=== PATIENT | male | born 1980 | race African-American/Black ===

== ENCOUNTER → 2016-06-28 | Outpatient (CLI) | payer OTHER ==
--- NOTE | 2016-06-28 10:31 | REP ---
Clinical: Pain and swelling. Technique: AP, lateral, bilateral oblique views of the right fifth digit. Findings: Osseous structures and joint spaces are relatively intact and normal for age. No acute fracture dislocation. No subcutaneous emphysema or radiodense foreign body. Impression: Normal age appropriate appearance of the right fifth digit. Signed by Roc David MD 06/28/2016 10:22 A
== END ==
LOC: M LRY 09:44
PROVIDERS: ATTEND Nurse Practitioner Family
DX: M25.441 Effusion, right hand (principal)

== ENCOUNTER → 2016-06-28 | Outpatient (REF) | payer OTHER ==
[2016-06-28 12:35] LABS: URIC ACID 4.5 MG/DL (3.5-7.2)
== END ==
LOC: M SFHCLERA 09:41
PROVIDERS: ATTEND Nurse Practitioner Family
DX: M25.441 Effusion, right hand (principal)

== ENCOUNTER → 2019-01-02 | Outpatient (REF) | payer OTHER, MEDICAID ==
[2019-01-02 13:07] LABS: BASO % 0.8 % (0.0-1.0); EOS # 0.1 10^3/uL (0.0-0.5); EOS % 1.2 % (0.0-3.0); HEMATOCRIT 45.5 % (42.0-52.0); HEMOGLOBIN 15.3 g/dl (13.5-17.5); LYMPH # 1.9 10^3/uL (1.5-5.0); MEAN CORPUSCULAR HEMOGLOBIN 30.4 pg (27.0-33.0); MEAN CORPUSCULAR HGB CONC 33.6 g/dl (32.0-36.5); MEAN CORPUSCULAR VOLUME 90.3 fl (80.0-96.0); MONO # 0.3 10^3/uL (0.0-0.8); NEUTROPHILS # 2.5 10^3/uL (1.5-8.5); NEUTROPHILS % 51.6 % (36.0-66.0); PLATELET COUNT, AUTOMATED 153 10^3/uL (150-450); RED BLOOD COUNT 5.04 10^6/uL (4.30-6.10); WHITE BLOOD COUNT 4.8 10^3/uL (4.0-10.0)
[2019-01-02 13:34] LABS: ALBUMIN 4.3 GM/DL (3.2-5.2); ALT/SGPT 35 U/L (12-78); BILIRUBIN,TOTAL 0.6 MG/DL (0.2-1.0); BLOOD UREA NITROGEN 7 MG/DL (7-18); CALCIUM LEVEL 9.5 MG/DL (8.5-10.1); CARBON DIOXIDE LEVEL 28 MEQ/L (21-32); CHLORIDE LEVEL 107 MEQ/L (98-107); CHOLESTEROL LEVEL 116 MG/DL (<200); CHOLESTEROL RISK RATIO 1.812 (<5); CREATININE FOR GFR 1.24 MG/DL (0.70-1.30); FREE T4 1.08 NG/DL (0.76-1.46); GLOMERULAR FILTRATION RATE > 60.0 (>60); GLUCOSE, FASTING 70 MG/DL (70-100); HDL CHOLESTEROL 64 MG/DL (>40); LDL CHOLESTEROL 41 MG/DL (<100); NON-HDL-C 52 MG/DL; POTASSIUM SERUM 4.8 MEQ/L (3.5-5.1); SODIUM LEVEL 140 MEQ/L (136-145); THYROID STIMULATING HORMONE 0.771 uIU/ML (0.358-3.740); TOTAL PROTEIN 7.6 GM/DL (6.4-8.2); TRIGLYCERIDES LEVEL 56 MG/DL (<150)
[2019-01-02 13:36] LABS: TOTAL 25(OH) VITAMIN D 9.9 NG/ML (30.0-100.0)
[2019-01-02 13:44] LABS: HEMOGLOBIN A1c 5.6 %
== END ==
LOC: M LAB REF 12:11
PROVIDERS: ATTEND Nurse Practitioner Family
DX: Z13.9 Encounter for screening, unspecified (principal)

== ENCOUNTER 2019-03-14 10:22 | Emergency (ER) | payer MEDICAID, OTHER, SELFPAY ==
[~2019-03-14] VITALS: Ht 185.4 cm; Wt 77.6 kg
[2019-03-14] MEDS ORDERED: ROBA750T4 PO (11:53)
[2019-03-14] MEDS ORDERED: NAPR-837 PO (11:53)
[2019-03-14 11:57] VITALS: BP 110/55
== END 2019-03-14 12:04 | disposition home or self-care (01) ==
LOC: M ED 10:22
DX: S39.012A Strain of muscle, fascia and tendon of lower back, initial encounter (principal); X58.XXXA Exposure to other specified factors, initial encounter; Y92.89 Other specified places as the place of occurrence of the external cause; M62.830 Muscle spasm of back

== ENCOUNTER → 2020-03-03 | Outpatient (REF) | payer OTHER ==
[~2020-03-03] MED LIST: NAPR-837 PO; ROBA750T4 PO
[2020-03-03 12:13] LABS: BASO # 0.1 10^3/uL (0.0-0.2); EOS # 0.1 10^3/uL (0.0-0.5); EOS % 1.4 % (0.0-3.0); HEMATOCRIT 43.8 % (42.0-52.0); HEMOGLOBIN 14.7 g/dl (13.5-17.5); LYMPH # 1.5 10^3/uL (1.5-5.0); LYMPH % 25.6 % (24.0-44.0); MEAN CORPUSCULAR HEMOGLOBIN 29.9 pg (27.0-33.0); MEAN CORPUSCULAR HGB CONC 33.6 g/dl (32.0-36.5); MEAN CORPUSCULAR VOLUME 89.2 fl (80.0-96.0); MONO # 0.6 10^3/uL (0.0-0.8); NEUTROPHILS # 3.5 10^3/uL (1.5-8.5); NEUTROPHILS % 60.3 % (36.0-66.0); PLATELET COUNT, AUTOMATED 192 10^3/uL (150-450); RED BLOOD COUNT 4.91 10^6/uL (4.30-6.10); WHITE BLOOD COUNT 5.8 10^3/uL (4.0-10.0)
[2020-03-03 12:45] LABS: ALBUMIN 4.1 GM/DL (3.2-5.2); ALT/SGPT 34 U/L (12-78); BILIRUBIN,TOTAL 0.5 MG/DL (0.2-1.0); BLOOD UREA NITROGEN 13 MG/DL (7-18); CALCIUM LEVEL 9.8 MG/DL (8.5-10.1); CARBON DIOXIDE LEVEL 27 MEQ/L (21-32); CHLORIDE LEVEL 106 MEQ/L (98-107); CHOLESTEROL LEVEL 143 MG/DL (<200); CHOLESTEROL RISK RATIO 1.554 (<5); CREATININE FOR GFR 1.04 MG/DL (0.70-1.30); GLOMERULAR FILTRATION RATE > 60.0 (>60); GLUCOSE, FASTING 98 MG/DL (70-100); HDL CHOLESTEROL 92 MG/DL (>40); LDL CHOLESTEROL 36 MG/DL (<100); NON-HDL-C 51 MG/DL; POTASSIUM SERUM 4.3 MEQ/L (3.5-5.1); SODIUM LEVEL 140 MEQ/L (136-145); TOTAL PROTEIN 7.3 GM/DL (6.4-8.2); TRIGLYCERIDES LEVEL 76 MG/DL (<150)
[2020-03-03 12:47] LABS: TOTAL 25(OH) VITAMIN D 10.4 NG/ML (30.0-100.0)
[2020-03-03 13:29] LABS: HEMOGLOBIN A1c 5.2 %
[2020-03-04 23:08] LABS: PSA TOTAL 0.9 ng/mL (0.0-4.0)
== END ==
LOC: M LAB REF 11:36
PROVIDERS: ATTEND Nurse Practitioner Family
DX: Z00.00 Encounter for general adult medical examination without abnormal findings (principal)

== ENCOUNTER 2020-06-19 04:51 | Emergency (ER) | payer OTHER ==
[~2020-06-19] VITALS: Ht 185.4 cm; Wt 92.7 kg
[2020-06-19 07:36] LABS: BASO % 0.6 % (0.0-1.0); EOS # 0.1 10^3/uL (0.0-0.5); EOS % 1.9 % (0.0-3.0); HEMATOCRIT 47.9 % (42.0-52.0); HEMOGLOBIN 16.1 g/dl (13.5-17.5); LYMPH # 1.5 10^3/uL (1.5-5.0); LYMPH % 28.4 % (24.0-44.0); MEAN CORPUSCULAR HEMOGLOBIN 29.1 pg (27.0-33.0); MEAN CORPUSCULAR HGB CONC 33.6 g/dl (32.0-36.5); MEAN CORPUSCULAR VOLUME 86.6 fl (80.0-96.0); MONO # 0.4 10^3/uL (0.0-0.8); MONO % 7.9 % (2.0-8.0); NEUTROPHILS # 3.2 10^3/uL (1.5-8.5); PLATELET COUNT, AUTOMATED 183 10^3/uL (150-450); RED BLOOD COUNT 5.53 10^6/uL (4.30-6.10); WHITE BLOOD COUNT 5.2 10^3/uL (4.0-10.0)
--- NOTE | 2020-06-19 07:51 | REP ---
INDICATION: L knee pain. COMPARISON: Comparison radiographs of the left knee are from 18 February 2010.. TECHNIQUE: Five views of the left knee are provided. FINDINGS: Five views of the left knee demonstrate minimal medial tibial spur formation. Joint spaces are preserved. There is slight fullness in the suprapatellar bursa suggestive of a small joint effusion. No erosive changes seen. No fracture is noted.. Scratch. . IMPRESSION: No acute bony abnormality. Minimal medial tibial plateau spurring. Question small joint effusion.. <Electronically signed by Bakari Rojas > 06/19/20 [id number]
[2020-06-19 07:53] LABS: BLOOD UREA NITROGEN 17 MG/DL (7-18); CALCIUM LEVEL 9.2 MG/DL (8.5-10.1); CARBON DIOXIDE LEVEL 25 MEQ/L (21-32); CHLORIDE LEVEL 109 MEQ/L (98-107); CREATININE FOR GFR 1.12 MG/DL (0.70-1.30); GLOMERULAR FILTRATION RATE > 60.0 (>60); GLUCOSE, FASTING 102 MG/DL (70-100); POTASSIUM SERUM 4.2 MEQ/L (3.5-5.1); SODIUM LEVEL 138 MEQ/L (136-145)
[2020-06-19 08:06] LABS: ERYTHROCYTE SEDIMENTATION RATE 2 mm/hr (0-15)
[2020-06-19 08:37] VITALS: BP 119/76
== END 2020-06-19 08:39 | disposition home or self-care (01) ==
LOC: M ED 04:51
DX: M17.12 Unilateral primary osteoarthritis, left knee (principal); M25.462 Effusion, left knee

== ENCOUNTER → 2020-06-24 | Outpatient (CLI) | payer OTHER ==
--- NOTE | 2020-06-24 09:54 | REP ---
INDICATION: PAIN IN LEFT KNEE. COMPARISON: None. TECHNIQUE: Single AP weightbearing view of the bilateral knees. . FINDINGS: Osseous structures, joint spaces, and surrounding soft tissues appear relatively symmetric and normal IMPRESSION: Symmetric age-appropriate examination. <Electronically signed by Roc David > 06/24/20 [id number]
== END ==
LOC: M SOG 09:06
PROVIDERS: ATTEND Orthopaedic Surgery Adult Reconstructive Orthopaedic Surgery
DX: M25.562 Pain in left knee (principal)

== ENCOUNTER → 2024-01-17 | Outpatient (REF) | payer BC ==
[2024-01-17 13:55] LABS: BASO % 0.7 % (0.0-1.0); EOS # 0.1 10^3/uL (0.0-0.5); EOS % 1.5 % (0.0-3.0); HEMATOCRIT 45.1 % (42.0-52.0); HEMOGLOBIN 15.1 g/dl (13.5-17.5); LYMPH # 1.9 10^3/uL (1.5-5.0); LYMPH % 31.3 % (24.0-44.0); MEAN CORPUSCULAR HEMOGLOBIN 30.2 pg (27.0-33.0); MEAN CORPUSCULAR HGB CONC 33.5 g/dl (32.0-36.5); MEAN CORPUSCULAR VOLUME 90.2 fl (80.0-96.0); MONO # 0.4 10^3/uL (0.0-0.8); NEUTROPHILS # 3.5 10^3/uL (1.5-8.5); NEUTROPHILS % 59.2 % (36.0-66.0); PLATELET COUNT, AUTOMATED 187 10^3/uL (150-450)
[2024-01-17 14:26] LABS: HEMOGLOBIN A1c 5.2 % (4.0-6.0)
[2024-01-17 14:30] LABS: ALBUMIN 4.1 G/DL (3.2-5.2); ALKALINE PHOSPHATASE 49 U/L (40-129); ALT/SGPT 26 U/L (7.0-40); AST/SGOT 18 U/L (<34); BILIRUBIN,TOTAL 0.8 MG/DL (0.3-1.2); BLOOD UREA NITROGEN 17 MG/DL (9-23); CALCIUM LEVEL 9.8 MG/DL (8.5-10.1); CARBON DIOXIDE LEVEL 26 MMOL/L (20-31); CHLORIDE LEVEL 107 MMOL/L (98-107); CHOLESTEROL LEVEL 143 MG/DL (<200); CHOLESTEROL RISK RATIO 2.38 (<5); CREATININE FOR GFR 0.93 MG/DL (0.70-1.30); GLOMERULAR FILTRATION RATE > 60.0 (>60); GLUCOSE, FASTING 100 MG/DL (60-100); HDL CHOLESTEROL 59.9 MG/DL (>40); LDL CHOLESTEROL 65.3 MG/DL (<100); NON-HDL-C 83.1 MG/DL; POTASSIUM SERUM 4.4 MMOL/L (3.5-5.1); SODIUM LEVEL 139 MMOL/L (136-145); THYROID STIMULATING HORMONE 1.027 uIU/ML (0.55-4.78); TOTAL 25(OH) VITAMIN D 8.6 NG/ML (20.0-100.0); TOTAL PROTEIN 7.2 G/DL (5.7-8.2); TRIGLYCERIDES LEVEL 89 MG/DL (<150)
== END ==
LOC: M LAB REF 12:47
PROVIDERS: ATTEND Nurse Practitioner Family
DX: E66.3 Overweight (principal); E55.9 Vitamin D deficiency, unspecified; R53.83 Other fatigue; Z11.9 Encounter for screening for infectious and parasitic diseases, unspecified